=== PATIENT | female | born 1975 | race Caucasian/White ===

== ENCOUNTER 2024-09-08 16:14 | Outpatient (CLI) | payer BC | END 2024-09-08 23:59 | disposition home or self-care (01) | LOC: MRI02 16:14 | PROVIDERS: ATTEND Physician Assistant Surgical | DX: M43.16 Spondylolisthesis, lumbar region (principal); M51.370 Other intervertebral disc degeneration, lumbosacral region with discogenic back pain only; M41.9 Scoliosis, unspecified; M48.07 Spinal stenosis, lumbosacral region; M51.16 Intervertebral disc disorders with radiculopathy, lumbar region; M51.35 Other intervertebral disc degeneration, thoracolumbar region | CPT/HCPCS: 72148 ==